=== PATIENT | female | born 2000 | race Two or more races ===

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

== ENCOUNTER 2021-01-25 10:54 | Emergency (ER) | payer MEDICAID ==
[~2021-01-25] VITALS: Ht 162.6 cm; Wt 82.5 kg
[~2021-01-25 10:54] MED LIST changes: -HYDR-1067 PO; +HYDR-2214 PO
--- NOTE | 2021-01-25 11:20 | NUR ---
MUSICAL STRING MAKER: PT TO ROOM FROM LOBBY
--- NOTE | 2021-01-25 11:40 | NUR ---
PT PRESENTS TO ED WITH C/O BILATERAL LOWER QUADRANT ABD PAIN STARTING THIS MORNING. DENIES VOMITTING/DIARRHEA/CONSTIPATION. PT STATES THEY HAVE HAD THEIR GALLBLADDER REMOVED. PT A&O, RESPS EVEN AND UNLABORED, VSS, NADN. CALL LIGHT IN REACH.
[2021-01-25] MEDS ORDERED: ONDANSETRON 2MG/ML, 2ML IVPush ONE (12:00)
[2021-01-25] MEDS ORDERED: SODIUM CHLORIDE FLUSH 10ML SYR IVF ONE (12:00)
[2021-01-25] MEDS ORDERED: ONDANSETRON 2MG/ML, 2ML ONE (12:07)
[2021-01-25] MEDS ORDERED: MORPHINE SULFATE 4 MG/ML, 1ML ONE ×2 (12:07→13:06)
[2021-01-25] MEDS: MORPHINE SULFATE 4 MG/ML, 1ML IVPush PRN ×2 (12:17→13:08)
[2021-01-25 12:26] LABS: BASOPHILS % (AUTO) 1 % (0-1); EOSINOPHILS % (AUTO) 0 % (1-7); LYMPHOCYTES % (AUTO) 22 % (22-44); MEAN CORPUSCULAR HEMOGLOBIN 30.1 pg (27.0-34.8); MEAN CORPUSCULAR HGB CONC 33.8 g/dL (32.4-35.8); MEAN PLATELET VOLUME 9.4 fL (7.4-10.4); MONOCYTES % (AUTO) 7 % (2-9); NEUTROPHILS % (AUTO) 71 % (42-75); PLATELET COUNT 248 x10^3/uL (130-400); RED BLOOD COUNT 4.31 x10^6/uL (3.82-5.3); RED CELL DISTRIBUTION WIDTH 13.1 % (9.6-15.2)
[2021-01-25 12:33] LABS: MD NO
--- NOTE | 2021-01-25 12:37 | NUR ---
PRECEPTOR RN NOTE: PT REPORTS PAIN DOWN TO 6/10, RESTING COMFORTABLY IN BED. BP AND SPO2 MONITORS INPLACE. CALL LIGHT IN REACH. AWAITING LAB RESULTS AND DISPO AT THIS TIME.
[2021-01-25 12:39] LABS: ALBUMIN 3.2 g/dL (3.4-5.0); CALCIUM 8.6 mg/dL (8.5-10.1); CHLORIDE 107 mmol/L (98-107)
[2021-01-25 12:40] LABS: MICROSCOPIC INDICATED
[2021-01-25 12:45] LABS: ALANINE AMINOTRANSFERASE 15 U/L (12-78); BILIRUBIN,TOTAL 0.2 mg/dL (0.2-1.0)
[2021-01-25 12:54] LABS: CREATININE 0.54 mg/dL (0.55-1.02)
[2021-01-25 12:58] LABS: ALKALINE PHOSPHATASE 44 U/L (45-117); TOTAL PROTEIN 7.1 g/dL (6.4-8.2)
[2021-01-25 13:06] LABS: ANION GAP 7 mmol/L (5-15)
--- NOTE | 2021-01-25 13:10 | NUR ---
PT STATES PAIN NOT GETTING BETTER, MEDICATED W/ SECOND DOSE OF MORPHINE PER ORDER, PT TOLERATED WELL.
--- NOTE | 2021-01-25 14:11 | NUR ---
PT RESTING IN BED, A&O, RESPS EVEN AND UNLABORED, STATES THEY ARE FEELING "TIGHTNESS IN CHEST". VSS, ALL MONITORS ATTACHED, NSR. CALL LIGHT IN REACH.
[2021-01-25 15:07] VITALS: BP 106/51
--- NOTE | 2021-01-25 15:08 | NUR ---
PT BACK FROM CT, RESTING IN BED. PT A&O, RESPS EVEN AND UNLABORED,VSS, ALL MONITORS ATTACHED, NSR. CALL LIGHT IN REACH. AWAITING CT RESULTS AND DISPO.
--- NOTE | 2021-01-25 15:38 | NUR ---
DISCHARGE INSTRUCTIONS REVIEWED, PT EDUCATED ON FOLLOW-UP AND RETURN CRITERIA, VERBALIZED UNDERSTANDING. PT AMBULATORY TO DISCHARGE DESK WITH STEADY GAIT, ACCOMPANIED BY FRIEND.
== END 2021-01-25 15:38 | disposition home or self-care (01) ==
LOC: ED 12:32
DX: R10.31 Right lower quadrant pain (principal); R11.0 Nausea
CPT/HCPCS: 36415; 74177; 80053; 81001; 84702; 85025; 87086; 96374; 96375; 96376; 99285; J2270; J2405